=== PATIENT | female | born 1955 | race Hispanic/Latino ===

== ENCOUNTER 2024-08-05 16:08 | Emergency (ER) | payer MEDICARE ==
[~2024-08-05] VITALS: Ht 172.7 cm; Wt 88.9 kg
[2024-08-05 16:30] VITALS: TEMP 99.3
[2024-08-05 16:49] LABS: BASOPHILS % 0.1 % (0.0-1.0); EOSINOPHILS % 0.2 % (0.0-6.0); HEMATOCRIT 46.7 % (34.2-44.1); HEMOGLOBIN 16.1 g/dL (12.0-16.0); LYMPHOCYTES # (AUTO) 0.8 (1.0-3.2); LYMPHOCYTES % 6.5 % (18.0-39.1); MEAN CORPUSCULAR HEMOGLOBIN 28.1 pg (28-32); MEAN CORPUSCULAR HGB CONC 34.5 g/dL (31-35); MEAN CORPUSCULAR VOLUME 81.5 fL (81-99); MONOCYTES # (AUTO) 0.3 (0.2-0.8); MONOCYTES % 2.5 % (4.4-11.3); NEUTROPHILS # (AUTO) 10.7 (2.1-6.9); NEUTROPHILS % 90.4 % (38.7-80.0); PLATELET COUNT 176 x10e3/uL (140-360); RED BLOOD COUNT 5.73 x10e6/uL (3.6-5.1); RED CELL DISTRIBUTION WIDTH 13.1 % (11.7-14.4); WHITE BLOOD COUNT 11.82 x10e3/uL (4.8-10.8)
[2024-08-05] MEDS: DICYCLOMINE HCL 20 MG/2 ML VIAL IM ONE (17:02)
[2024-08-05] MEDS: LACTATED RINGER'S 1,000 ML INJ ONE (17:02)
[2024-08-05] MEDS: ONDANSETRON HCL INJ 2MG/ML 2ML 2 MG/ML VIAL IV STA (17:02)
[2024-08-05 17:04] LABS: ALBUMIN 4.7 g/dL (3.5-5.0); ALBUMIN/GLOBULIN RATIO 1.3 (0.8-2.0); BILIRUBIN,TOTAL 0.9 mg/dL (0.2-1.2); CALCIUM 9.6 mg/dL (8.4-10.2); CREATININE, SERUM 0.79 mg/dL (0.57-1.11); TOTAL PROTEIN 8.4 g/dL (6.5-8.1)
[2024-08-05 17:22] LABS: TROPONIN I 0.009 ng/mL (0-0.300)
[2024-08-05] MEDS: MAGNESIUM/ALUMINUM/SIMETHICONE 30 ML UDC PO ONE (17:32)
[2024-08-05] MEDS: LIDOCAINE VISC 2% SOLN 15 ML UDC PO ONE (17:32)
[2024-08-05] MEDS: BELLADONNA ALK/PHENOBARBITAL 5 ML UDC PO STA (17:32)
[2024-08-05 17:33] VITALS: PULSE 103; RESP 16
[2024-08-05] MEDS ORDERED: OMEPRAZOLE40 MG PO (17:58)
[2024-08-05] MEDS ORDERED: ONDANSETRON ODT4 MG PO (17:58)
[2024-08-05 18:22] VITALS: BP 148/91; PULSE 100; RESP 16; TEMP 98.8; O2SAT 98
== END 2024-08-05 18:08 | disposition home or self-care (01) ==
LOC: ER 16:46
DX: R11.2 Nausea with vomiting, unspecified (principal); K29.70 Gastritis, unspecified, without bleeding; R10.13 Epigastric pain
CPT/HCPCS: 36415; 80053; 83690; 84484; 85025; 93005; 99284; J0500; J2405; J2470; J7121